=== PATIENT | male | born 1995 | race Caucasian/White ===

== ENCOUNTER 2017-10-18 22:59 | Emergency (ER) | payer SELFPAY ==
[~2017-10-18] VITALS: Ht 167.6 cm; Wt 65.8 kg
[2017-10-18] MEDS ORDERED: ACETAMINOPHEN 325 MG TABLET PO ONE (23:30)
[2017-10-18] MEDS ORDERED: ACETAMINOPHEN ES 500 MG TABLET ONE (23:45)
[2017-10-19 02:49] VITALS: BP 125/69
== END 2017-10-19 02:50 | disposition home or self-care (01) ==
LOC: ER 22:59
DX: M25.512 Pain in left shoulder (principal); Y04.0XXA Assault by unarmed brawl or fight, initial encounter; Y93.89 Activity, other specified; Y92.89 Other specified places as the place of occurrence of the external cause; Y99.8 Other external cause status
CPT/HCPCS: 73010-TC; 73030-TC; A4606; Z7610